=== PATIENT | female | born 1975 | race Caucasian/White ===

== ENCOUNTER 2017-02-07 17:38 | Inpatient (IN) | payer MEDICARE ==
[~2017-02-07] VITALS: Ht 165.1 cm; Wt 49.4 kg
[~2017-02-07 17:38] MED LIST: PRILOSEC10 MG PO; SPORANOX PO; Zithromax PO
[2017-02-07 18:38] LABS: EOSINOPHIL (%) 9.6 % (0-5); EOSINOPHIL COUNT 0.2 K/uL (0-0.3); HEMATOCRIT 30.6 % (36.0-46.0); INSTRUMENT ABS NEUTROPHIL CT 0.4 K/uL; LYMPHOCYTE COUNT 0.7 K/uL (1.0-2.8); MCH 27.2 PG (29.0-34.0); MCV 82.5 FL (83-99); MONOCYTE (%) 17.3 % (3-12); MONOCYTE COUNT 0.3 K/uL (0-0.8); NEUTROPHIL (%) 25.7 % (45-76); NEUTROPHIL COUNT 0.4 K/uL (1.8-6.4); PLATELET COUNT 131 K/uL (156-360); RBC DIS.WIDTH-CV 14.2 % (11.8-14.6); RBC DIS.WIDTH-SD 42.1 % (39-53); RED BLOOD COUNT 3.71 M/uL (3.80-5.20)
[2017-02-07 18:39] LABS: WHITE BLOOD COUNT 1.6 K/uL (4.1-10.2)
[2017-02-07 18:40] LABS: CHLORIDE 107 mEq/L (99-109); POTASSIUM 3.3 mEq/L (3.7-5.4); SODIUM 139 mEq/L (136-147)
[2017-02-07 18:41] LABS: GLUCOSE 83 mg/dL (70-99)
[2017-02-07 18:42] LABS: ANION GAP 10 MEQ/L (2-14)
[2017-02-07 18:45] LABS: GFR ESTIMATE (CALCULATED) > 59 mL/min/
[2017-02-07 18:46] LABS: UREA NITROGEN (BUN) 9 mg/dL (9-23)
[2017-02-07 19:06] LABS: LACTATE DEHYDROGENASE 219 IU/L (20-246)
[2017-02-07 19:24] LABS: ABS NEUTROPHIL COUNT 0.7; ANISOCYTOSIS 1+; BAND NEUTROPHILS 8.4 % (0-8.0); BASOPHILS 0.9 %; EOSINOPHIL ABS CT 0.1; EOSINOPHILS 7.5 % (0-5.0); OVALOCYTES 1+; PLAT.SUFFICIENCY DECREASED; POIKILOCYTOSIS 2+; SEG.NEUTROPHILS 32.7 % (46.0-76.0); SMUDGE CELLS 42.1
[2017-02-07 20:02] LABS: ADD MIUA? NO; BILIRUBIN NEGATIVE; BLOOD NEGATIVE; COLOR YELLOW ((YELLOW)); GLUCOSE (STRIP) NEGATIVE; KETONES NEGATIVE; LEUKOCYTES NEGATIVE; NITRITE NEGATIVE; PROTEIN (STRIP) NEGATIVE; SPECIFIC GRAVITY 1.011 (1.000-1.030); UCUL ADDED? NO; UROBILINOGEN 0.2 MG/DL (0.2-1.0)
[2017-02-07] MEDS ORDERED: KENALOG,ARISTOC15 G1 TP (20:55)
[2017-02-08] VITALS (8 sets, daily range): BP systolic 80–117; BP diastolic 44–72
[2017-02-08 07:21] LABS: HEMATOCRIT 29.9 % (36.0-46.0); MCH 28.6 PG (29.0-34.0); MCHC 33.8 G/DL (30.0-36.0); MCV 84.7 FL (83-99); PLATELET COUNT 127 K/uL (156-360); RBC DIS.WIDTH-CV 14.6 % (11.8-14.6); RBC DIS.WIDTH-SD 44.7 % (39-53); RED BLOOD COUNT 3.53 M/uL (3.80-5.20); WHITE BLOOD COUNT 2.1 K/uL (4.1-10.2)
[2017-02-08 07:45] LABS: ALKALINE PHOSPHATASE 43 IU/L (3-129); ANION GAP 5 MEQ/L (2-14); CHLORIDE 111 MEQ/L (99-109); GFR ESTIMATE (CALCULATED) > 59 mL/min/; GLUCOSE 86 mg/dL (70-99); SAMPLE HEMOLYSIS CHECK 0; SAMPLE ICTERIC CHECK 0; SAMPLE LIPEMIA CHECK 0; SODIUM 140 MEQ/L (136-147); TOTAL BILIRUBIN 0.2 MG/DL (0.0-1.0); UREA NITROGEN (BUN) 8 mg/dL (9-23)
[2017-02-08 07:46] LABS: POTASSIUM 4.4 MEQ/L (3.7-5.4)
[2017-02-08 13:35] LABS: INTERNAL CONTROL VALID? YES
[2017-02-08 14:02] LABS: C DIFF TOXIN NEGATIVE (NEGATIVE)
[2017-02-08 14:09] LABS: PROBE CHECK PASS; SPECIMEN PROCESSING CONTROL PASS
[2017-02-09 04:03] VITALS: BP 91/59
[2017-02-09 07:03] LABS: HEMATOCRIT 30.7 % (36.0-46.0); MCH 28.3 PG (29.0-34.0); MCHC 32.9 G/DL (30.0-36.0); MEAN PLAT.VOLUME 10.3 uM^3 (9.5-12.4); PLATELET COUNT 119 K/uL (156-360); RBC DIS.WIDTH-CV 14.7 % (11.8-14.6); RBC DIS.WIDTH-SD 46.5 % (39-53); RED BLOOD COUNT 3.57 M/uL (3.80-5.20); WHITE BLOOD COUNT 2.3 K/uL (4.1-10.2)
[2017-02-09 07:32] LABS: ANION GAP 4 MEQ/L (2-14); CHLORIDE 113 MEQ/L (99-109); GFR ESTIMATE (CALCULATED) > 59 mL/min/; GLUCOSE 82 mg/dL (70-99); MAGNESIUM 1.7 mg/dl (1.3-2.7); POTASSIUM 4.5 MEQ/L (3.7-5.4); SAMPLE HEMOLYSIS CHECK 0; SAMPLE ICTERIC CHECK 0; SAMPLE LIPEMIA CHECK 0; SODIUM 143 MEQ/L (136-147); UREA NITROGEN (BUN) 7 mg/dL (9-23)
[2017-02-09 07:38] VITALS: BP 83/47
[2017-02-09 07:50] LABS: ABS NEUTROPHIL COUNT 0.6; ANISOCYTOSIS 1+; BAND NEUTROPHILS 0.9 % (0-8.0); BURR CELLS 1+; EOSINOPHIL ABS CT 0.8; INSTRUMENT ABS NEUTROPHIL CT 0.3 K/uL; OVALOCYTES 2+; PLAT.SUFFICIENCY DECREASED; POIKILOCYTOSIS 2+; SEG.NEUTROPHILS 23.9 % (46.0-76.0)
[2017-02-09 07:55] LABS: EOSINOPHILS 34.5 % (0-5.0)
[2017-02-09 11:51] VITALS: BP 99/61
[2017-02-09 16:30] VITALS: BP 104/72
[2017-02-09 19:51] VITALS: BP 110/74
[2017-02-09 23:59] VITALS: BP 109/55
[2017-02-10 04:01] VITALS: BP 104/67
[2017-02-10 07:20] VITALS: BP 106/74
[2017-02-10] MEDS ORDERED: MYCOSTATIN 100,60 ML PO (10:30)
[2017-02-10] MEDS ORDERED: BACTRIM,SEPT1 TABLE1 PO (10:30)
[2017-02-10] MEDS ORDERED: AZITHROMYCIN600 MG PO (10:30)
[2017-02-10 11:43] VITALS: BP 109/72
[2017-02-11 10:41] LABS: HIV RNA QUANT LOG10 RESULT 5.58 Log(10) (<1.30)
== END 2017-02-10 12:41 | disposition home or self-care (01) | DRG 975 ==
LOC: EME 17:38 → 2EAST 21:41 → EDOF 21:41 → ENRESERV 21:43 → CANRESERV 23:02 → ENRESERV 23:02 → EDOF 23:53 → 2EAST 23:55
PROVIDERS: Internal Medicine
DX: B20 Human immunodeficiency virus [HIV] disease (principal); R50.81 Fever presenting with conditions classified elsewhere; T37.5X5A Adverse effect of antiviral drugs, initial encounter; L27.1 Localized skin eruption due to drugs and medicaments taken internally; E87.6 Hypokalemia; B37.0 Candidal stomatitis; I47.1 Supraventricular tachycardia; F41.9 Anxiety disorder, unspecified; F32.9 Major depressive disorder, single episode, unspecified; Z91.19 Patient's noncompliance with other medical treatment and regimen; Z68.1 Body mass index [BMI] 19.9 or less, adult
CPT/HCPCS: 71020; 80048; 80053; 81003; 83605; 83615; 83630; 83735; 84100; 85025; 85027; 86355 90; 86359 90; 86360 90; 87040; 87177; 87493; 87536; 87651 90; 87900 90; 87901 90; 93005; 93306; 99281; 99285; J1644; J3480; J7030